=== PATIENT | female | born 1990 | race Caucasian/White ===

== ENCOUNTER → 2018-01-01 | Outpatient (CLI) | payer OTHER ==
[~2018-01-01] MED LIST: OXYC-737 PO
== END | disposition home or self-care (01) ==
LOC: C.LAB 11:26
PROVIDERS: ATTEND Nurse Practitioner Women's Health
DX: O36.80X0 Pregnancy with inconclusive fetal viability, not applicable or unspecified (principal); Z3A.00 Weeks of gestation of pregnancy not specified

== ENCOUNTER → 2018-01-15 | Outpatient (CLI) | payer OTHER | END | disposition home or self-care (01) | LOC: C.LAB 12:16 | PROVIDERS: ATTEND Obstetrics & Gynecology | DX: O02.1 Missed abortion (principal) ==

== ENCOUNTER → 2018-01-20 | Outpatient (CLI) | payer OTHER | END | disposition home or self-care (01) | LOC: C.LAB 09:03 | PROVIDERS: ATTEND Physician Assistant Medical | DX: Z00.00 Encounter for general adult medical examination without abnormal findings (principal) ==